=== PATIENT | female | born 1955 | race Caucasian/White ===

== ENCOUNTER 2018-03-05 21:51 | Emergency (ER) | payer OTHER ==
[2018-03-05] MEDS ORDERED: PROPARACAINE 0.5% OPHTH DROPS 15 ML BTL LEFT EYE STA (23:52)
[2018-03-06] MEDS ORDERED: TOBRAMYCIN 0.3% OPHTH OINT 3.5 GM TUBE LEFT EYE STA (00:04)
--- NOTE | 2018-03-06 00:05 | ED ---
Eye Problem HPI - General Chief complaint: Eye Problems Stated complaint: eye pain-[facility] Time Seen by Provider: 03/05/18 23:52 Source: patient Mode of arrival: ambulatory Limitations: no limitations - History of Present Illness Initial comments: 62-year-old female patient presented to the emergency department today for evaluation of foreign body to the left eye. Patient reports that she was at work when she felt something fly into her eye. Patient states that she did try to flush the eye numerous times without relief. Patient states she feels something is stuck in the center of her eye. She states that she has been having clear drainage from the eye. She denies any blurred or double vision with this. Denies any painful movement of the eye. Patient denies any headache , neck pain, back pain, chest pain, shortness of breath, dizziness, weakness, abdominal pain, nausea, vomiting, or difficulties with bowel movements or urination. - Related Data Allergies Allergy/AdvReac Type Severity Reaction Status Date / Time Sulfa (Sulfonamide Allergy Nausea & Verified 03/05/18 22:17 Antibiotics) Vomiting & Diarrhea peach AdvReac Rash/Hives Verified 03/05/18 22:18 Review of Systems ROS Statement: Those systems with pertinent positive or pertinent negative responses have been documented in the HPI. ROS Other: All systems not noted in ROS Statement are negative. Past Medical History Past Medical History: Hyperlipidemia History of Any Multi-Drug Resistant Organisms: None Reported Past Surgical History: Orthopedic Surgery Additional Past Surgical History / Comment(s): carpal tunnel 1984 Past Psychological History: No Psychological Hx Reported Smoking Status: Current every day smoker Past Alcohol Use History: Occasional Past Drug Use History: None Reported General Exam Limitations: no limitations General appearance: alert, in no apparent distress, other (This is a well- developed, well-nourished adult female patient in no acute distress. Vital signs upon presentation are temperature 98.7F, pulse 71, respirations 16, blood pressure upon presentation are temperature 135/83, pulse ox 100% on room air.) Eye exam: Present: normal appearance, PERRL, EOMI, conjunctival injection, other (Wood's lamp examination with fluorescein stain was performed, there was evidence of a small corneal abrasion over the pupil. No evidence of globe injury or hyphema.). Absent: scleral icterus, periorbital swelling, periorbital tenderness ENT exam: Present: normal exam, normal oropharynx, mucous membranes moist Respiratory exam: Present: normal lung sounds bilaterally. Absent: respiratory distress, wheezes, rales, rhonchi, stridor Cardiovascular Exam: Present: regular rate, normal rhythm, normal heart sounds. Absent: systolic murmur, diastolic murmur, rubs, gallop, clicks Neurological exam: Present: alert, oriented X3, CN II-XII intact Psychiatric exam: Present: normal affect, normal mood Skin exam: Present: warm, dry, intact, normal color. Absent: rash Course Vital Signs 03/05/18 03/06/18 22:03 00:09 Temperature 98.7 F 97.8 F Pulse Rate 71 67 Respiratory 16 18 Rate Blood Pressure 135/83 162/80 O2 Sat by Pulse 100 97 Oximetry Medical Decision Making - Medical Decision Making 62-year-old female patient percents to the emergency department today for evaluation of left eye discomfort. Physical examination did reveal conjunctival injection to the left eye. Fluoroscein stain with Wood's lamp examination was performed and did reveal small corneal abrasion over the pupil. There is no evidence of foreign body. Patient did not have any visual disturbance. She will be started on tobramycin ointment and instructed to follow-up with the boarding specialist of her symptoms don't improve over the next 1 -2 days. Return parameters discussed in detail. She verbalizes understanding and agrees with this plan. Disposition Clinical Impression: Corneal abrasion Disposition: HOME SELF-CARE Condition: Good Instructions: Tobramycin (Into the eye), Corneal Abrasion (ED) Additional Instructions: Apply 1 cm ribbon of the medication to the left lower eyelid 4 times daily. Follow-up with ophthalmology for symptoms aren't improved over the next 1-2 days. Return here immediately for any new, worsening, or concerning symptoms. Is patient prescribed a controlled substance at discharge?: No Referrals: Rafael Tang DO [Primary Care Provider] - 1-2 days Henry Kang MD [STAFF PHYSICIAN] - 1-2 days Time of Disposition: 00:05
[2018-03-06 00:10] VITALS: BP 162/80; PULSE 67; RESP 18; TEMP 97.8
== END 2018-03-06 00:18 | disposition home or self-care (01) ==
LOC: EC 21:51
DX: S05.02XA Injury of conjunctiva and corneal abrasion without foreign body, left eye, initial encounter (principal); F17.200 Nicotine dependence, unspecified, uncomplicated; Z88.2 Allergy status to sulfonamides; Z91.018 Allergy to other foods; X58.XXXA Exposure to other specified factors, initial encounter; Y92.69 Other specified industrial and construction area as the place of occurrence of the external cause; Y99.0 Civilian activity done for income or pay
CPT/HCPCS: 99283